=== PATIENT | male | born 2000 | race African-American/Black ===

== ENCOUNTER 2024-10-01 09:23 | Emergency (ER) | payer OTHER ==
[2024-10-01 10:21] VITALS: BP 117/77; PULSE 67; RESP 20; TEMP 98.8; BMI 28.8
[2024-10-01] MEDS ORDERED: ACETAMINOPHEN 500 MG TABLET (FP) ONE (11:08)
[2024-10-01] MEDS: ACETAMINOPHEN 500 MG TABLET (FP) PO ONE (11:10)
[2024-10-01] MEDS ORDERED: LIDOCAINE 4% PATCH TP ONE (12:35)
[2024-10-01] MEDS: LIDOCAINE 4% PATCH TP ONE (12:38)
[2024-10-01] MEDS ORDERED: LIDOCAINE PATCH REMOVAL MC SCH (22:00)
== END 2024-10-01 13:31 | disposition home or self-care (01) ==
LOC: JERFT 09:23
DX: R51.9 Headache, unspecified (principal); V49.40XA Driver injured in collision with unspecified motor vehicles in traffic accident, initial encounter
CPT/HCPCS: 70450-TC; 99284-25